=== PATIENT | male | born 1965 | race Caucasian/White ===

== ENCOUNTER 2021-02-19 15:48 | Outpatient (CLI) | payer OTHER ==
[2021-02-20 01:24] LABS: SARS-CoV-2 PCR by NAA Not Detected (NotDetected)
== END 2021-02-19 15:49 | disposition home or self-care (01) ==
LOC: LABBT 15:48
PROVIDERS: ATTEND Otolaryngology Plastic Surgery within the Head & Neck
DX: Z01.818 Encounter for other preprocedural examination (principal); K22.5 Diverticulum of esophagus, acquired; K44.9 Diaphragmatic hernia without obstruction or gangrene; K21.9 Gastro-esophageal reflux disease without esophagitis; R13.10 Dysphagia, unspecified; R49.0 Dysphonia; Z20.822 Contact with and (suspected) exposure to COVID-19
CPT/HCPCS: 87635; 93005; 93010; U0003; U0005

== ENCOUNTER 2021-02-24 08:28 | Day surgery (SDC) | payer OTHER ==
[2021-02-23 09:19] VITALS: BMI 27.2
[2021-02-24] MEDS ORDERED: Fentanyl 100 MCG/2 ML VIAL ONE (09:30)
[2021-02-24] MEDS ORDERED: Famotidine/PF 20 mg/2ml Vial ONE (09:30)
[2021-02-24] MEDS ORDERED: Lidocaine 1% w/Epinephrine 1:100K 20 ML VIAL ONE (10:42)
[2021-02-24] MEDS ORDERED: EPINEPHrine 1 MG/ML AMP ONE (10:42)
[2021-02-24] MEDS ORDERED: PROPOFOL 200 MG/20 ML VIAL ONE (11:26)
[2021-02-24] MEDS ORDERED: Lidocaine 1% PF 5 ML VIAL ONE (11:26)
[2021-02-24] MEDS ORDERED: Metoclopramide HCl 10 MG/2 ML VIAL ONE (11:26)
[2021-02-24] MEDS ORDERED: Dexamethasone 20 MG/5 ML VIAL ONE (11:26)
[2021-02-24] MEDS ORDERED: Ketorolac Tromethamine 30 MG/ML VIAL ONE (11:26)
[2021-02-24] MEDS ORDERED: Rocuronium Bromide 10 MG/ML (10ML VIAL) ONE (11:26)
[2021-02-24] MEDS ORDERED: Ondansetron PF 4 MG/2 ML Vial ONE (11:26)
[2021-02-24] MEDS ORDERED: SUGAMMADEX SODIUM 200 MG/2 ML VIAL ONE (11:37)
[2021-02-24] MEDS ORDERED: Clindamycin/D5W 900 mg/50 ml Premix Bag ONE (11:56)
== END 2021-02-24 14:35 | disposition home or self-care (01) ==
LOC: SDC 08:28
PROVIDERS: ATTEND Otolaryngology Plastic Surgery within the Head & Neck
PROC: 0K844ZZ Division of Tongue, Palate, Pharynx Muscle, Percutaneous Endoscopic Approach (ICD-10-PCS; principal; 2021-02-24)
DX: K22.5 Diverticulum of esophagus, acquired (principal); K44.9 Diaphragmatic hernia without obstruction or gangrene; K21.9 Gastro-esophageal reflux disease without esophagitis; E78.5 Hyperlipidemia, unspecified; F17.290 Nicotine dependence, other tobacco product, uncomplicated; Z79.899 Other long term (current) drug therapy
CPT/HCPCS: J0171; J1100; J1885; J2405; J2704; J2765; J3010; J3490; S0028